=== PATIENT | male | born 1955 | race Caucasian/White ===

== ENCOUNTER 2022-11-09 20:07 | Emergency (ER) | payer MEDICARE, OTHER, SELFPAY ==
[2022-11-09 20:09] VITALS: BP 133/82; PULSE 81; RESP 16; TEMP 37.1; O2SAT 97
--- NOTE | 2022-11-09 20:15 | ED_ITS ---
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 it started to fall and he turned his head and was struck on the left ear. Injury just prior to admission. No headache, dizziness or visual complaint. No paresthesia of his extremities. Last tetanus 5 years ago Onset (ago): hour(s) Related Data Allergies Allergy/AdvReac Type Severity Reaction Status Date / Time No Known Drug Allergies Allergy Verified 11/09/22 20:13 Review of Systems ROS Status of ROS 10 or more systems reviewed and unremarkable except as noted in history and below Exam Constitutional Vital Signs, click to edit/add: Last Vital Signs Temp 98.7 F 11/09/22 20:09 Pulse 81 11/09/22 20:09 Resp 16 11/09/22 20:09 BP 133/82 H 11/09/22 20:09 Pulse Ox 97 11/09/22 20:09 O2 Del Method Room Air 11/09/22 20:09 Common normals: no apparent distress, average body habitus, oriented x3, no limitations and healthy appearing [facility] Ear images: 1. 2.5 cm lac. at superior aspect of lac cartilage present and lacerated as well. Eye Common normals: PERRL, EOMs intact bilaterally and conjunctivae normal Respiratory Common normals: normal respiratory effort, no retractions, no use of accessory muscles and clear to auscultation bilaterally Cardio Common normals: regular rate, regular rhythm, S1 normal heart sound and S2 normal heart sound Extremity Common normals: normal to inspection and full ROM Neuro Common normals: oriented x3, moves all extremities, no focal motor deficits and no sensory deficits noted Psych Appearance: grossly normal Course Vital Signs Vital signs: Vital Signs Temperature 98.7 F 11/09/22 20:09 Pulse Rate 81 11/09/22 20:09 Respiratory Rate 16 11/09/22 20:09 Blood Pressure 133/82 H 11/09/22 20:09 Pulse Oximetry 97 11/09/22 20:09 Oxygen Delivery Method Room Air 11/09/22 20:09 Temperature 98.7 F 11/09/22 20:09 Pulse Rate 81 11/09/22 20:09 Respiratory Rate 16 11/09/22 20:09 Blood Pressure 133/82 H 11/09/22 20:09 Pulse Oximetry 97 11/09/22 20:09 Oxygen Delivery Method Room Air 11/09/22 20:09 MDM - Wound/Laceration MDM Narrative Medical decision making narrative: patient presents after laceration to left ear. superior aspect of the laceration with exposure and lac of cartilage. No deformity of ear. Lac repaired as above without incident. Patient tolerated well. Discharged with prescription of Augmentin Discharge Plan Discharge Chief Complaint: Wound/Laceration Clinical Impression: Laceration of ear, external, left Patient Disposition: Home, Self-Care Instructions: Laceration (ED) Additional Instructions: have wound rechecked in 2-3 days and stitches removed in 10 days Stand Alone Forms: Portal Instructions Referrals: Physician,Non-Staff, MD [Primary Care Provider] - 1 week Procedures ED Procedure Instructions Procedures Procedures: left ear laceration external. 2.5cm lac. superior aspect with exposure and lac of cartilage. The inferior 80% of the lac without cartilage involvement. No deformity of the ear 1% lido as a local. Site cleaned with betadine. risned with saline and closed with 4.0 prolene stitches. no complications
[2022-11-09] MEDS: ADACEL DIPH,PERTUSS(ACELL),TET VAC/PF 0.5 ML ADULT SYRINGE IM (20:45)
--- NOTE | 2022-11-09 20:48 | PC.NURSE ---
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 pt states he was underneath it and dropped something, attempted to dodge objecct and cut left ear. pt had ear folded and covered in bandage. bleeding under control
== END 2022-11-09 21:37 | disposition home or self-care (01) ==
PROVIDERS: Emergency Provider Internal Medicine
DX: S01.312A Laceration without foreign body of left ear, initial encounter (principal); Z23 Encounter for immunization; W26.8XXA Contact with other sharp object(s), not elsewhere classified, initial encounter
CPT/HCPCS: 12011; 90471; 90715; 99284